=== PATIENT | female | born 1960 | race American Indian/Alaskan Native ===

== ENCOUNTER 2017-05-04 09:43 | Emergency (ER) | payer MEDICAID ==
[2017-05-04 09:54] VITALS: BP 116/73
[2017-05-04] MEDS ORDERED: TORADOL IM ONE (10:13)
--- NOTE | 2017-05-04 10:43 | XRay Report ---
LUMBOSACRAL SPINE, 3 VIEWS: History: Back pain Findings: The vertebral bodies, disk spaces and posterior elements are intact. No compression deformity or malalignment. The SI joints are symmetric and unremarkable. Mild lumbar spondylosis is noted. Impression: 1. No evidence for acute injury to the lumbar spine.
[2017-05-04 11:17] LABS: Bilirubin,Urine NEG (Negative); Blood,Urine SM (Negative); Ketones,Urine NEG (Negative); Leukocyte Esterase,Urine NEG (Negative); Nitrite,Urine NEG (Negative); Protein,Urine <15 mg/dL mg/dL (Negative); Urobilinogen,Urine < 2.0 mg/dL (<2.0)
[2017-05-04 11:25] LABS: WBC,Urine < 1.0 /HPF (0.0-6.0)
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
== END 2017-05-04 11:32 | disposition home or self-care (01) ==
LOC: ED 09:43
DX: S39.012A Strain of muscle, fascia and tendon of lower back, initial encounter (principal); E11.9 Type 2 diabetes mellitus without complications; Z79.82 Long term (current) use of aspirin; Z79.4 Long term (current) use of insulin; V89.2XXA Person injured in unspecified motor-vehicle accident, traffic, initial encounter; Y93.89 Activity, other specified; Y99.9 Unspecified external cause status; Y92.410 Unspecified street and highway as the place of occurrence of the external cause
CPT/HCPCS: 72100; 81001; 96372; 99283; J1885

== ENCOUNTER 2018-11-18 18:09 | Emergency (ER) | payer MEDICAID ==
--- NOTE | 2018-11-18 19:32 | XRay Report ---
FINAL REPORT PROCEDURE: Left wrist. TECHNIQUE: Four views. HISTORY: Patient fell, wrist pain. COMPARISON: No prior studies are available for comparison. FINDINGS: The bones appear intact without fracture or dislocation. The joint spaces appear normal. The soft tis sues are unremarkable. IMPRESSION: Normal study.
--- NOTE | 2018-11-18 19:43 | XRay Report ---
FINAL REPORT EXAM: XR KNEE 3V LT HISTORY: FALL WITH PAIN TECHNIQUE: AP, oblique, and lateral views of the left knee PRIORS: None. FINDINGS: No acute fracture or dislocation is seen. The soft tissues are unremarkable with no evidence for sup rapatellar joint effusion. Joint spaces are maintained and bony mineralization is normal. Large spur is present off the superior anterior patella. IMPRESSION: Negative views of the left knee.
--- NOTE | 2018-11-18 21:03 | Cat Scan Report ---
FINAL REPORT EXAM: CT HEAD/BRAIN WO CON HISTORY: FALL W HEADACHE TECHNIQUE: Standard unenhanced CT of the head at 5.0 millimeter axial increments. PRIORS: None. FINDINGS: The ventricular system is normal in size and configuration. There is no evidence for parenchymal volu me loss. There is no evidence for mass lesion, mass effect, midline shift, acute intracranial hemorrhage, or a cute ischemia/ infarction. No evidence for acute skull fracture is seen. No abnormality in the overlying scalp soft tissues is seen. Visualized paranasal sinuses demonstrate mucosal thickening in both maxillary sinuses. IMPRESSION: No acute intracranial process noted. Chronic maxillary sinusitis
--- NOTE | 2018-11-18 22:24 | Emergency Department Report ---
ED Head Trauma HPI - General Chief complaint: Head Injury Stated complaint: FELL/HEAD/KNEE PAIN Time Seen by Provider: 11/18/18 21:50 Source: patient Mode of arrival: Wheelchair Limitations: No Limitations - History of Present Illness Complaint: head injury, head pain, fall Mechanism of Injury: mechanical fall (patient has a prosthetic right leg which has been giving her issue. She is to admit to the prosthesis provider who had reportedly repaired it on a couple days ago, however, states that the knee has been giving out more so since the alleged repair. She had fallen twice today, which led to her visit today. Somewhat during the fall. She struck herself on the knee and wrist and also hit her head on the wall on the left side, but no loss of consciousness. Does have a dull throbbing headache since that time, which was in the afternoon.) Location: [facility] Place: work Radiation: none Quality: dull Consistency: constant Provoking factors: none known Other Injuries: none Associated Symptoms: denies: confusion, repetitive questioning, vomiting, vertigo, weakness, tingling - Related Data Home Medications Medication Instructions Recorded Confirmed Last Taken Aspirin [Baby Aspirin] 81 mg PO QDAY 08/18/13 08/18/13 Unknown Insulin NPH Hum/Reg Insulin Hm 12 unit SQ BID 08/18/13 08/18/13 Unknown [Novolin 70-30 100 Unit/ml Vial] Lovastatin [Mevacor] 20 mg PO QPM 08/18/13 Unknown glyBURIDE [Diabeta] 10 mg PO BID 08/18/13 08/18/13 Unknown metFORMIN XR [Glucophage XR] 1,000 mg PO BID 08/18/13 Unknown Previous Rx's Medication Instructions Recorded Last Taken Type Ciprofloxacin HCl [Cipro] 500 mg PO Q12H #14 tab 11/28/14 Unknown Rx Fluticasone [Flonase] 1 spray NS QDAY #1 bottle 11/28/14 Unknown Rx Ranitidine HCl [Zantac] 300 mg PO QDAY #14 tablet 11/28/14 Unknown Rx Cyclobenzaprine [Flexeril] 10 mg PO TID PRN #30 tablet 05/04/17 Unknown Rx Naproxen [Naprosyn TAB] 500 mg PO BID PRN #60 tablet 05/04/17 Unknown Rx traMADol [Ultram] 50 mg PO Q6HR PRN #20 tablet 11/18/18 Unknown Rx Allergies/Adverse reactions: Allergies Allergy/AdvReac Type Severity Reaction Status Date / Time No Known Allergies Allergy Unverified 08/18/13 12:22 ED Review of Systems ROS: Stated complaint: FELL/HEAD/KNEE PAIN Other details as noted in HPI Constitutional: denies: chills, fever Eyes: denies: eye pain, eye discharge, vision change ENT: denies: ear pain, throat pain Respiratory: denies: cough, shortness of breath, wheezing Cardiovascular: denies: chest pain, palpitations Endocrine: no symptoms reported Gastrointestinal: denies: abdominal pain, nausea, diarrhea Genitourinary: denies: urgency, dysuria, discharge Musculoskeletal: denies: back pain, joint swelling, arthralgia Skin: denies: rash, lesions Neurological: denies: headache, weakness, paresthesias Psychiatric: denies: anxiety, depression Hematological/Lymphatic: denies: easy bleeding, easy bruising ED Past Medical Hx - Past Medical History Hx Hypertension: Yes Hx Diabetes: Yes Additional medical history: AKA right,elevated cholesterol - Surgical History Additional Surgical History: AKA / right breast lumpectomy / left groin hernia repair - Social History Smoking Status: Never Smoker Substance Use Type: None - Medications Home Medications: Home Medications Medication Instructions Recorded Confirmed Last Taken Type Aspirin [Baby Aspirin] 81 mg PO QDAY 08/18/13 08/18/13 Unknown History Insulin NPH Hum/Reg Insulin Hm 12 unit SQ BID 08/18/13 08/18/13 Unknown History [Novolin 70-30 100 Unit/ml Vial] Lovastatin [Mevacor] 20 mg PO QPM 08/18/13 Unknown History glyBURIDE [Diabeta] 10 mg PO BID 08/18/13 08/18/13 Unknown History metFORMIN XR [Glucophage XR] 1,000 mg PO BID 08/18/13 Unknown History Ciprofloxacin HCl [Cipro] 500 mg PO Q12H #14 tab 11/28/14 Unknown Rx Fluticasone [Flonase] 1 spray NS QDAY #1 bottle 11/28/14 Unknown Rx Ranitidine HCl [Zantac] 300 mg PO QDAY #14 tablet 11/28/14 Unknown Rx Cyclobenzaprine [Flexeril] 10 mg PO TID PRN #30 tablet 05/04/17 Unknown Rx Naproxen [Naprosyn TAB] 500 mg PO BID PRN #60 tablet 05/04/17 Unknown Rx traMADol [Ultram] 50 mg PO Q6HR PRN #20 tablet 11/18/18 Unknown Rx ED Physical Exam - General Limitations: No Limitations General appearance: alert, in no apparent distress - Head Head exam: Present: atraumatic, normocephalic, other (tenderness to the left parietal region. There is a small scalp hematoma with no abrasion or bleeding. Tenderness to the touch.) - Eye Eye exam: Present: normal appearance, PERRL, EOMI Pupils: Present: normal accommodation - ENT ENT exam: Present: normal exam, mucous membranes moist - Neck Neck exam: Present: normal inspection, full ROM. Absent: tenderness, lymphadenopathy - Respiratory Respiratory exam: Present: normal lung sounds bilaterally. Absent: respiratory distress - Cardiovascular Cardiovascular Exam: Present: regular rate, normal rhythm. Absent: systolic murmur, diastolic murmur, rubs, gallop - GI/Abdominal GI/Abdominal exam: Present: soft, normal bowel sounds - Extremities Exam Extremities exam: Present: normal inspection - Back Exam Back exam: Present: normal inspection - Neurological Exam Neurological exam: Present: alert, oriented X3 - Psychiatric Psychiatric exam: Present: normal affect, normal mood - Skin Skin exam: Present: warm, dry, intact, normal color. Absent: rash ED Course Vital Signs 11/18/18 18:22 Temperature 98.5 F Pulse Rate 95 H Blood Pressure 152/65 O2 Sat by Pulse 100 Oximetry Critical care attestation.: If time is entered above; I have spent that time in minutes in the direct care of this critically ill patient, excluding procedure time. ED Disposition Clinical Impression: Fall, Head trauma Disposition: DC-01 TO HOME OR SELFCARE Is pt being admited?: No Does the pt Need Aspirin: No Condition: Stable Instructions: Concussion (ED), Minor Head Injury (ED) Referrals: PRIMARY CARE, [Primary Care Provider] - 3-5 Days [facility] [Provider Group] - 3-5 Days
[2018-11-18] MEDS ORDERED: NORCO 5/325 PO STA (22:42)
[2018-11-18 22:55] VITALS: BP 139/80
== END 2018-11-18 22:56 | disposition home or self-care (01) ==
LOC: ED 18:09
DX: S00.03XA Contusion of scalp, initial encounter (principal); I10 Essential (primary) hypertension; E11.9 Type 2 diabetes mellitus without complications; E78.00 Pure hypercholesterolemia, unspecified; Z79.82 Long term (current) use of aspirin; Z79.4 Long term (current) use of insulin; W18.30XA Fall on same level, unspecified, initial encounter; Y93.89 Activity, other specified; Y92.89 Other specified places as the place of occurrence of the external cause; Y99.8 Other external cause status
CPT/HCPCS: 70450; 99284

== ENCOUNTER 2019-06-19 10:18 | Emergency (ER) | payer MEDICAID ==
[2019-06-19 10:37] VITALS: BP 116/71
--- NOTE | 2019-06-19 13:14 | Emergency Department Report ---
ED Extremity Problem HPI - General Chief complaint: Extremity Injury, Lower Stated complaint: LFT FOOT SWELLING/PAIN Time Seen by Provider: 06/19/19 12:56 Source: patient Mode of arrival: Wheelchair Limitations: No Limitations - History of Present Illness Initial comments: 58-year-old female presents to ED with left foot and ankle pain. Patient also reports swelling of the ankle. Patient states she has been having pain and swelling of the left foot and ankle off and on since she injured it last year. Patient states she fell 3 times last year and injured her left ankle. Patient denies any recent fall or injuries. Patient states the swelling today is better than it has been previously. Patient taking Tylenol for pain. Patient also reports she has been seeing a machinery dismantler for her foot. Also taking gabapentin for neuropathy. MD Complaint: extremity pain -: year(s) (1) Location: left, lower extremity History of Same: Yes -: Yes arthralgia Radiation: proximal Quality: aching Consistency: intermittent Improves with: elevation Worsens with: weight bearing, walking Associated Symptoms: denies other symptoms - Related Data Home Medications Medication Instructions Recorded Confirmed Last Taken Aspirin [Baby Aspirin] 81 mg PO QDAY 08/18/13 08/18/13 Unknown Insulin NPH Hum/Reg Insulin Hm 12 unit SQ BID 08/18/13 08/18/13 Unknown [Novolin 70-30 100 Unit/ml Vial] Lovastatin [Mevacor] 20 mg PO QPM 08/18/13 Unknown glyBURIDE [Diabeta] 10 mg PO BID 08/18/13 08/18/13 Unknown metFORMIN XR [Glucophage XR] 1,000 mg PO BID 08/18/13 Unknown Previous Rx's Medication Instructions Recorded Last Taken Type Ciprofloxacin HCl [Cipro] 500 mg PO Q12H #14 tab 11/28/14 Unknown Rx Fluticasone [Flonase] 1 spray NS QDAY #1 bottle 11/28/14 Unknown Rx Ranitidine HCl [Zantac] 300 mg PO QDAY #14 tablet 11/28/14 Unknown Rx Cyclobenzaprine [Flexeril] 10 mg PO TID PRN #30 tablet 05/04/17 Unknown Rx Naproxen [Naprosyn TAB] 500 mg PO BID PRN #60 tablet 05/04/17 Unknown Rx traMADol [Ultram] 50 mg PO Q6HR PRN #20 tablet 11/18/18 Unknown Rx Naproxen [Naprosyn] 500 mg PO BID #20 tablet 06/19/19 Unknown Rx predniSONE [Deltasone] 50 mg PO QDAY #5 tab 06/19/19 Unknown Rx Allergies Allergy/AdvReac Type Severity Reaction Status Date / Time No Known Allergies Allergy Unverified 08/18/13 12:22 ED Review of Systems ROS: Stated complaint: LFT FOOT SWELLING/PAIN Other details as noted in HPI Comment: All other systems reviewed and negative Constitutional: denies: chills, fever Musculoskeletal: as per HPI ED Past Medical Hx - Past Medical History Previous Medical History?: Yes Hx Hypertension: Yes Hx Diabetes: Yes Additional medical history: AKA right,elevated cholesterol - Surgical History Past Surgical History?: Yes Additional Surgical History: AKA / right breast lumpectomy / left groin hernia repair - Social History Smoking Status: Never Smoker Substance Use Type: None - Medications Home Medications: Home Medications Medication Instructions Recorded Confirmed Last Taken Type Aspirin [Baby Aspirin] 81 mg PO QDAY 08/18/13 08/18/13 Unknown History Insulin NPH Hum/Reg Insulin Hm 12 unit SQ BID 08/18/13 08/18/13 Unknown History [Novolin 70-30 100 Unit/ml Vial] Lovastatin [Mevacor] 20 mg PO QPM 08/18/13 Unknown History glyBURIDE [Diabeta] 10 mg PO BID 08/18/13 08/18/13 Unknown History metFORMIN XR [Glucophage XR] 1,000 mg PO BID 08/18/13 Unknown History Ciprofloxacin HCl [Cipro] 500 mg PO Q12H #14 tab 11/28/14 Unknown Rx Fluticasone [Flonase] 1 spray NS QDAY #1 bottle 11/28/14 Unknown Rx Ranitidine HCl [Zantac] 300 mg PO QDAY #14 tablet 11/28/14 Unknown Rx Cyclobenzaprine [Flexeril] 10 mg PO TID PRN #30 tablet 05/04/17 Unknown Rx Naproxen [Naprosyn TAB] 500 mg PO BID PRN #60 tablet 05/04/17 Unknown Rx traMADol [Ultram] 50 mg PO Q6HR PRN #20 tablet 11/18/18 Unknown Rx Naproxen [Naprosyn] 500 mg PO BID #20 tablet 06/19/19 Unknown Rx predniSONE [Deltasone] 50 mg PO QDAY #5 tab 06/19/19 Unknown Rx ED Physical Exam - General Limitations: No Limitations General appearance: alert, in no apparent distress - Head Head exam: Present: atraumatic, normocephalic - Eye Eye exam: Present: normal appearance - ENT ENT exam: Present: mucous membranes moist - Neck Neck exam: Present: normal inspection - Respiratory Respiratory exam: Present: normal lung sounds bilaterally. Absent: respiratory distress - Cardiovascular Cardiovascular Exam: Present: regular rate, normal rhythm - GI/Abdominal GI/Abdominal exam: Absent: distended - Extremities Exam Extremities exam: Present: normal capillary refill, pedal edema (very minimal, no pitting edema present), other (right leg prosthesis present; left foot and ankle w/ minimal swelling, no erythema present, tenderness present to left ankle) - Neurological Exam Neurological exam: Present: alert, oriented X3 - Psychiatric Psychiatric exam: Present: normal affect, normal mood - Skin Skin exam: Present: warm, dry, intact, normal color ED Course Vital Signs 06/19/19 10:29 Temperature 99.0 F Pulse Rate 82 Respiratory 18 Rate Blood Pressure 116/71 O2 Sat by Pulse 98 Oximetry ED Medical Decision Making - Differential Diagnosis arthritis, diabetic neuropathy Critical care attestation.: If time is entered above; I have spent that time in minutes in the direct care of this critically ill patient, excluding procedure time. ED Disposition Clinical Impression: Arthritis Disposition: DC-01 TO HOME OR SELFCARE Is pt being admited?: No Condition: Stable Instructions: Osteoarthritis (ED) Prescriptions: predniSONE [Deltasone] 50 mg PO QDAY #5 tab Naproxen [Naprosyn] 500 mg PO BID #20 tablet Referrals: PRIMARY CARE, [Referring] - 3-5 Days Time of Disposition: 13:14
== END 2019-06-19 13:32 | disposition home or self-care (01) ==
LOC: ED 10:18
DX: M19.072 Primary osteoarthritis, left ankle and foot (principal); I10 Essential (primary) hypertension; E11.9 Type 2 diabetes mellitus without complications
CPT/HCPCS: 82962; 99283

== ENCOUNTER 2021-05-07 17:19 | Emergency (ER) | payer MEDICARE ==
[2021-05-07] MEDS ORDERED: ASPIRIN 325 MG TAB PO ONE (17:36)
[2021-05-07 18:04] LABS: Basophils # (Auto) 0.1 K/mm3 (0.0-0.1); Basophils % (Auto) 0.8 % (0.0-1.8); Eosinophils # (Auto) 0.1 K/mm3 (0.0-0.4); Eosinophils % (Auto) 1.1 % (0.0-4.3); Hematocrit 37.5 % (30.3-42.9); Hemoglobin 12.6 gm/dl (10.1-14.3); Lymphocytes # (Auto) 2.7 K/mm3 (1.2-5.4); Lymphocytes % (Auto) 29.1 % (13.4-35.0); Mean Corpuscular HGB Conc 34 % (30-34); Mean Corpuscular Volume 83 fl (79-97); Monocytes # (Auto) 0.7 K/mm3 (0.0-0.8); Platelet Count 242 K/mm3 (140-440); Red Blood Count 4.53 M/mm3 (3.65-5.03); Red Cell Distribution Width 13.7 % (13.2-15.2)
--- NOTE | 2021-05-07 18:28 | XRay Report ---
CHEST 2 VIEWS INDICATION / CLINICAL INFORMATION: chest pain. COMPARISON: None available. FINDINGS: SUPPORT DEVICES: None. HEART / MEDIASTINUM: No significant abnormality. LUNGS / PLEURA: No significant pulmonary or pleural abnormality. No pneumothorax. ADDITIONAL FINDINGS: No significant additional findings. IMPRESSION: 1. No acute findings. Signer Name: Jailyn Roman MD Signed: 05/07/2021 6:24 PM Workstation Name: [id number]
[2021-05-07 18:47] LABS: Alanine Aminotransferase 17 units/L (7-56); Albumin 3.9 g/dL (3.9-5); Blood Urea Nitrogen 19 mg/dL (7-17); Calcium 9.2 mg/dL (8.4-10.2); Hemolysis Index 16
[2021-05-07 18:50] LABS: BUN/Creatinine Ratio 32
--- NOTE | 2021-05-07 22:55 | Emergency Department Report ---
ED Chest Pain HPI - General Chief Complaint: Chest Pain Stated Complaint: CHEST PAIN Time Seen by Provider: 05/07/21 22:50 Source: patient Mode of arrival: Ambulatory Limitations: Physical Limitation - History of Present Illness Initial Comments: 60-year-old female with history of diabetes and hypertension presents emergency department initially with complaint of chest pain however when questioned further she notes pain that is underneath her right breast and radiates to her back. She states that she had an ultrasound completed with her primary care doctor that noted kidney stones as well as gallbladder stones. She reports severe pain in this right flank area. She denies history of previous ID. She denies any family history of cardiac issues. She states briefly her pain was in the middle epigastric area and that is why initially in triage the chest pain order set was initiated. She has had some hematuria but denies any dysuria. She was started on Toradol and nitrofurantoin by her primary care doctor. - Related Data Home Medications Medication Instructions Recorded Confirmed Last Taken Aspirin [Baby Aspirin] 81 mg PO QDAY 08/18/13 08/18/13 Unknown Insulin NPH Hum/Reg Insulin Hm 12 unit SQ BID 08/18/13 08/18/13 Unknown [Novolin 70-30 100 Unit/ml Vial] Lovastatin [Mevacor] 20 mg PO QPM 08/18/13 Unknown glyBURIDE [Diabeta] 10 mg PO BID 08/18/13 08/18/13 Unknown metFORMIN XR [Glucophage XR] 1,000 mg PO BID 08/18/13 Unknown Previous Rx's Medication Instructions Recorded Last Taken Type Ciprofloxacin HCl [Cipro] 500 mg PO Q12H #14 tab 11/28/14 Unknown Rx Fluticasone [Flonase] 1 spray NS QDAY #1 bottle 11/28/14 Unknown Rx Ranitidine HCl [Zantac] 300 mg PO QDAY #14 tablet 11/28/14 Unknown Rx Cyclobenzaprine [Flexeril] 10 mg PO TID PRN #30 tablet 05/04/17 Unknown Rx Naproxen [Naprosyn TAB] 500 mg PO BID PRN #60 tablet 05/04/17 Unknown Rx traMADoL [Ultram] 50 mg PO Q6HR PRN #20 tablet 11/18/18 Unknown Rx Naproxen [Naprosyn] 500 mg PO BID #20 tablet 06/19/19 Unknown Rx predniSONE [Deltasone] 50 mg PO QDAY #5 tab 06/19/19 Unknown Rx Ondansetron [Zofran Odt] 4 mg PO Q8HR PRN #10 tab.rapdis 05/08/21 Unknown Rx Allergies Allergy/AdvReac Type Severity Reaction Status Date / Time No Known Allergies Allergy Verified 05/08/21 02:52 Heart Score - HEART Score History: Slightly suspicious EKG: Normal Age: 45-65 Risk factors: > 3 risk factors or hx of atherosclerotic disease Troponin: < normal limit HEART Score: 3 - EKG Read Time Time EKG Completed: 17:28 EKG Read Time: 17:48 ED Review of Systems ROS: Stated complaint: CHEST PAIN Other details as noted in HPI Constitutional: denies: chills, fever Eyes: denies: eye discharge ENT: denies: ear pain Respiratory: see HPI. denies: cough, shortness of breath Cardiovascular: chest pain Endocrine: denies: intolerance to cold, intolerance to heat Gastrointestinal: denies: abdominal pain, nausea, vomiting Genitourinary: hematuria. denies: dysuria Musculoskeletal: back pain Skin: denies: rash Neurological: denies: headache Psychiatric: denies: anxiety, depression Hematological/Lymphatic: denies: easy bleeding ED Past Medical Hx - Past Medical History Previous Medical History?: Yes Hx Hypertension: Yes Hx Diabetes: Yes Additional medical history: AKA right,elevated cholesterol, gallbladder pain/gallstones - Surgical History Past Surgical History?: Yes Additional Surgical History: AKA / right breast lumpectomy / left groin hernia repair - Social History Smoking Status: Never Smoker Substance Use Type: None - Medications Home Medications: Home Medications Medication Instructions Recorded Confirmed Last Taken Type Aspirin [Baby Aspirin] 81 mg PO QDAY 08/18/13 08/18/13 Unknown History Insulin NPH Hum/Reg Insulin Hm 12 unit SQ BID 08/18/13 08/18/13 Unknown History [Novolin 70-30 100 Unit/ml Vial] Lovastatin [Mevacor] 20 mg PO QPM 08/18/13 Unknown History glyBURIDE [Diabeta] 10 mg PO BID 08/18/13 08/18/13 Unknown History metFORMIN XR [Glucophage XR] 1,000 mg PO BID 08/18/13 Unknown History Ciprofloxacin HCl [Cipro] 500 mg PO Q12H #14 tab 11/28/14 Unknown Rx Fluticasone [Flonase] 1 spray NS QDAY #1 bottle 11/28/14 Unknown Rx Ranitidine HCl [Zantac] 300 mg PO QDAY #14 tablet 11/28/14 Unknown Rx Cyclobenzaprine [Flexeril] 10 mg PO TID PRN #30 tablet 05/04/17 Unknown Rx Naproxen [Naprosyn TAB] 500 mg PO BID PRN #60 tablet 05/04/17 Unknown Rx traMADoL [Ultram] 50 mg PO Q6HR PRN #20 tablet 11/18/18 Unknown Rx Naproxen [Naprosyn] 500 mg PO BID #20 tablet 06/19/19 Unknown Rx predniSONE [Deltasone] 50 mg PO QDAY #5 tab 06/19/19 Unknown Rx Ondansetron [Zofran Odt] 4 mg PO Q8HR PRN #10 tab.rapdis 05/08/21 Unknown Rx ED Physical Exam - General Limitations: Physical Limitation General appearance: alert, in no apparent distress - Head Head exam: Present: atraumatic, normocephalic - Eye Eye exam: Present: normal appearance Pupils: Present: normal accommodation - ENT ENT exam: Present: normal exam - Neck Neck exam: Present: normal inspection - Respiratory Respiratory exam: Present: normal lung sounds bilaterally - Cardiovascular Cardiovascular Exam: Present: regular rate, normal rhythm - GI/Abdominal GI/Abdominal exam: Present: soft. Absent: distended, tenderness - Rectal Rectal exam: Present: deferred - Extremities Exam Extremities exam: Present: normal inspection - Back Exam Back exam: Present: CVA tenderness (R) - Neurological Exam Neurological exam: Present: alert, oriented X3 - Psychiatric Psychiatric exam: Present: normal affect, normal mood - Skin Skin exam: Present: warm, dry, intact ED Course Vital Signs 05/08/21 02:49 Pulse Rate 81 Respiratory 21 Rate Blood Pressure 162/85 [Left] O2 Sat by Pulse 98 Oximetry - Reevaluation(s) Reevaluation #2: 05/08/21 05:44 Patient will complain of pain will be sleeping when we entered the room. She had one episode of vomiting and was given additional doses of Pepcid and Zofran and had a repeat trial of p.o. intake ED Medical Decision Making - Lab Data Result diagrams: 05/07/21 17:39 05/07/21 17:39 - EKG Data -: EKG Interpreted by Me EKG shows normal: sinus rhythm Rate: normal - EKG Data Interpretation: normal EKG - Medical Decision Making 60-year-old female presents to the emergency department initially with complaint of chest pain however upon further questioning notes right sided flank pain. She also states she has been previously diagnosed with a kidney stone this week with her primary care doctor after an ultrasound. She also notes she had stones in her gallbladder. Her abdominal exam is benign however she does have flank and right CVA tenderness. Plan to evaluate her renal stone with CT abdomen pelvis without contrast we will also give patient IV fluids, Zofran, morphine, Flomax. Will reevaluate after meds and CT imaging to see if she will be suitable for follow-up with urology. Critical care attestation.: If time is entered above; I have spent that time in minutes in the direct care of this critically ill patient, excluding procedure time. ED Disposition Clinical Impression: Flank pain, Cholelithiasis Disposition: TO HOME OR SELFCARE Is pt being admited?: No Does the pt Need Aspirin: No Condition: Stable Instructions: Cholelithiasis, Flank Pain, Adult, [id number] Additional Instructions: If your symptoms worsen including worsening nausea, flank pain you should return to the emergency department. Otherwise you should follow-up with general hi herbie. Referrals: [facility] [Other] - 3-5 Days LACEY MCKNIGHT MD [Staff Physician] - 3-5 Days (For your gallbladder stones) Time of Disposition: 05:49 Print Language: EMIRATI
[2021-05-07] MEDS ORDERED: TAMSULOSIN 0.4 MG CAP PO ONE (23:02)
[2021-05-07] MEDS ORDERED: ONDANSETRON 4 MG/2 ML INJ IV ONE (23:02)
[2021-05-07] MEDS ORDERED: SODIUM CHLORIDE 0.9% 1000 ML 1,000 ML IV ONE (23:02)
[2021-05-07] MEDS ORDERED: MORPHINE 4 MG/1 ML INJ IV ONE (23:02)
--- NOTE | 2021-05-07 23:45 | Cat Scan Report ---
CT abdomen pelvis wo con INDICATION: hx of renal stone; r flank pain; hx of gallstones. COMPARISON: None TECHNIQUE: Abdominal and pelvic CT exam performed. All CT scans at this location are performed using CT dose reduction for ALARA by means of automated exposure control. FINDINGS: CT ABDOMEN and PELVIS: Lung Bases: No significant abnormality. Liver: No significant abnormality. Biliary: Gallstones without gallbladder wall thickening or pericholecystic fluid. Spleen: No significant abnormality. Pancreas: No significant abnormality. Adrenals: No significant abnormality. Kidneys: No significant abnormality. Lymphatics: No lymphadenopathy. Vasculature: No significant abnormality. Bowel: No significant abnormality. Normal appendix. Pelvis: No significant abnormality. Osseous Structures: No aggressive osseous lesion. Additional Findings: None IMPRESSION: 1. No renal stones. No acute abnormality of the abdomen or pelvis. 2. Cholelithiasis without evidence for cholecystitis. Signer Name: Dav George MD Signed: 05/07/2021 11:40 PM Workstation Name: [id number]
[2021-05-08] MEDS ORDERED: oxyCODONE /ACETAMINOPHEN 5-325MG TAB PO ONE (01:21)
[2021-05-08] MEDS ORDERED: FAMOTIDINE 20 MG/2 ML INJ IV ONE (03:53)
[2021-05-08] MEDS ORDERED: ONDANSETRON 4 MG/2 ML INJ IV ONE (03:53)
[2021-05-08 04:15] LABS: Bacteria,Urine 1+ /HPF (Negative); Bilirubin,Urine NEG (Negative); Blood,Urine MOD (Negative); Color,Urine Straw (Yellow); Protein,Urine <15 mg/dL mg/dL (Negative); Urobilinogen,Urine < 2.0 mg/dL (<2.0)
[2021-05-08 06:13] VITALS: BP 134/66
--- NOTE | 2021-05-12 10:54 | Electrocardiograph Report ---
[facility] Test Date: 2021-05-07 Test Time: 17:28:48 Pat Name: FRANCY HANKINS Department: Room: Gender: F [employer]: TANISHA : 1960 Requested By: SAHHRAM JIMENEZ Order Number: [id number] Reading MD: Mark Russo Measurements Intervals [place] Rate: 88 P: 63 LA: 149 QRS: 13 QRSD: 75 T: 27 QT: 346 QTc: 418 Interpretive Statements Sinus rhythm Low voltage, precordial leads No previous ECG available for comparison Electronically Signed On 05-12-2021 10:53:37 EDT by Mark Russo
== END 2021-05-08 06:14 | disposition home or self-care (01) ==
LOC: ED 17:19
DX: K80.20 Calculus of gallbladder without cholecystitis without obstruction (principal); R07.89 Other chest pain; I10 Essential (primary) hypertension; E11.9 Type 2 diabetes mellitus without complications; Z98.890 Other specified postprocedural states; Z79.82 Long term (current) use of aspirin; Z79.899 Other long term (current) drug therapy
CPT/HCPCS: 36415; 71046; 74176; 80053; 81001; 84484; 85025; 93005; 96361; 96374; 96375; 96376; 99284; J2270; J2405; J7030